=== PATIENT | female | born 1945 | race Caucasian/White ===

== ENCOUNTER 2021-03-15 10:52 | Outpatient (CLI) | payer MEDICARE, OTHER | END 2021-03-15 10:53 | disposition home or self-care (01) | LOC: CSHCT 10:52 | PROVIDERS: ATTEND Nurse Practitioner | DX: Z01.810 Encounter for preprocedural cardiovascular examination (principal); I48.0 Paroxysmal atrial fibrillation; I67.1 Cerebral aneurysm, nonruptured; Z01.812 Encounter for preprocedural laboratory examination; Z20.822 Contact with and (suspected) exposure to COVID-19 | CPT/HCPCS: 71275; 80053; 82565; 85027; 85610; 86850; 86900; 86901; U0003; U0005 ==

== ENCOUNTER 2021-05-06 11:54 | Outpatient (CLI) | payer MEDICARE, OTHER | END 2021-05-06 11:55 | disposition home or self-care (01) | LOC: CSHCT 11:54 | PROVIDERS: ATTEND Internal Medicine Cardiovascular Disease | DX: Z95.818 Presence of other cardiac implants and grafts (principal); I48.0 Paroxysmal atrial fibrillation | CPT/HCPCS: 71275 ==